=== PATIENT | female | born 1980 | race African-American/Black ===

== ENCOUNTER 2017-04-16 13:00 | Emergency (ER) | payer MEDICAID, OTHER ==
[~2017-04-16] VITALS: Ht 170.2 cm; Wt 103.0 kg
[2017-04-16] MEDS ORDERED: IPRATROPIUM BROMIDE (0.02%) 0.5MG/2.5ML NEB HHN ONE (17:00)
[2017-04-16] MEDS ORDERED: ALBUTEROL (0.083%) 2.5MG/3ML NEB HHN ONE (17:00)
[2017-04-16] MEDS ORDERED: PREDNISONE 20MG TABLET PO ONE (17:00)
[2017-04-16] MEDS ORDERED: METHYLPREDNISOLONE SOD SUCC 125 MG/2 ML VIAL IM ONE (17:30)
[2017-04-16] MEDS ORDERED: IPRATROPIUM BROMIDE (0.02%) 0.5MG/2.5ML NEB HHN STA (18:29)
[2017-04-16] MEDS ORDERED: ALBUTEROL (0.083%) 2.5MG/3ML NEB HHN STA (18:29)
[2017-04-16 21:37] VITALS: BP 132/56
== END 2017-04-16 21:41 | disposition home or self-care (01) ==
LOC: ER 16:00
DX: J45.909 Unspecified asthma, uncomplicated (principal)
CPT/HCPCS: 94640; 94644; 96372; 99285; J2930; J7611; Z7610

== ENCOUNTER 2017-04-18 15:00 | Inpatient (IN) | payer MEDICAID, OTHER ==
[~2017-04-18] VITALS: Ht 170.2 cm; Wt 102.1 kg
[2017-04-18] MEDS ORDERED: ALBU18HF2 IH (15:19)
[2017-04-18] MEDS ORDERED: DUONEB3 ML INH (15:19)
[2017-04-18] MEDS ORDERED: METHYLPREDNISOLONE SOD SUCC 125 MG/2 ML VIAL IV STA (15:34)
[2017-04-18] MEDS ORDERED: IPRATROPIUM/ALBUTEROL 0.5-3(2.5)MG/3ML NEB HHN ONE ×3 (15:45→19:15)
[2017-04-18] MEDS ORDERED: MAGNESIUM 2 G PREMIX 50 ML IV ONE (17:45)
[2017-04-18 18:53] LABS: CLARITY URINE CLOUDY (CLEAR); COLOR URINE YELLOW (YELLOW); GLUCOSE URINE NEGATIVE (NEGATIVE); KETONES URINE TRACE (NEGATIVE); LEUKOCYTE ESTERASE URINE NEGATIVE (NEGATIVE); NITRITE URINE NEGATIVE (NEGATIVE); OCCULT BLOOD URINE NEGATIVE (NEGATIVE); PROTEIN URINE NEGATIVE (NEGATIVE); SPECIFIC GRAVITY URINE 1.035 (1.005-1.030); UROBILINOGEN URINE 0.2 E.U./dL (0.2-1.0)
[2017-04-18 19:31] LABS: HEMATOCRIT. 38.5 % (36.0-48.0); HEMOGLOBIN. 12.5 g/dL (12.0-16.0); MEAN CORPUSCULAR VOLUME 83.6 fL (81.0-99.0); MEAN PLATELET VOLUME 7.9 fl (7.4-10.4); PLATELET 325 x1000/uL (130-400); RED BLOOD CELL COUNT 4.61 mill/uL (4.2-5.4); RED CELL DISTRIBUTION WIDTH 15.8 % (11.6-14.6)
[2017-04-18 19:32] LABS: PROTHROMBIN TIME 10.8 sec (9.4-11.6)
[2017-04-18 19:40] LABS: CARBON DIOXIDE 27 mEq/L (21-32); CHLORIDE 106 mEq/L (98-107)
[2017-04-18] MEDS ORDERED: CLONIDINE 0.1MG TABLET PO PRN (20:15)
[2017-04-18] MEDS ORDERED: MAGNESIUM/ALUMINUM HYDROXIDE/SIMETHICONE 30ML UDC PO PRN (20:15)
[2017-04-18] MEDS ORDERED: ONDANSETRON HCL 4MG/2ML VIAL IV PRN (20:15)
[2017-04-18] MEDS ORDERED: HYDROCODONE/ACETAMINOPHEN 5/325MG TABLET PO PRN (20:15)
[2017-04-18] MEDS ORDERED: DIPHENHYDRAMINE 50MG/ML VIAL IV PRN (20:15)
[2017-04-18] MEDS ORDERED: IPRATROPIUM/ALBUTEROL 0.5-3(2.5)MG/3ML NEB INH PRN (20:15)
[2017-04-18] MEDS ORDERED: ACETAMINOPHEN 325MG TABLET PO PRN (20:15)
[2017-04-18 20:39] LABS: PLATELET ESTIMATE NORMAL
[2017-04-18] MEDS ORDERED: SODIUM CHLORIDE 0.9% 1000ML BAG (SEPSIS BOLUS) IV ONE (21:15)
[2017-04-18] MEDS ORDERED: LEVOFLOXACIN 500MG PREMIX 100 ML IV SCH (22:15)
[2017-04-19] MEDS: IPRATROPIUM/ALBUTEROL 0.5-3(2.5)MG/3ML NEB INH SCH ×6 (01:07→20:45)
[2017-04-19 01:34] VITALS: BP 117/86
[2017-04-19] MEDS: METHYLPREDNISOLONE SOD SUCC 40 MG/ML VIAL IV SCH ×3 (02:39→19:26)
[2017-04-19] MEDS ORDERED: BUDE6HFA INH (02:59)
[2017-04-19 04:00] VITALS: BP 108/73
[2017-04-19 07:13] LABS: CARBON DIOXIDE 24 mEq/L (21-32); CHLORIDE 108 mEq/L (98-107); HDL CHOLESTEROL 58 mg/dL (40-59); LDL CHOLESTEROL 74 mg/dL (5-100); TROPONIN I < 0.02 ng/mL (0.00-0.04)
[2017-04-19 07:32] LABS: HEMATOCRIT. 35.6 % (36.0-48.0); HEMOGLOBIN. 11.7 g/dL (12.0-16.0); MEAN CORPUSCULAR HEMOGLOBIN 27.4 pg (28.0-32.0); MEAN CORPUSCULAR VOLUME 83.8 fL (81.0-99.0); MEAN PLATELET VOLUME 8.4 fl (7.4-10.4); PLATELET 303 x1000/uL (130-400); RED BLOOD CELL COUNT 4.26 mill/uL (4.2-5.4); RED CELL DISTRIBUTION WIDTH 15.6 % (11.6-14.6)
[2017-04-19 08:00] VITALS: BP 116/73
[2017-04-19 09:57] LABS: *AMPHETAMINES SCREEN URINE NEGATIVE (NEGATIVE); *BARBITURATES SCREEN URINE NEGATIVE (NEGATIVE); *BENZODIAZEPINES SCREEN URINE NEGATIVE (NEGATIVE); *COCAINE SCREEN URINE NEGATIVE (NEGATIVE); METHADONE URINE SCREEN NEGATIVE (NEGATIVE); OPIATES URINE SCREEN NEGATIVE (NEGATIVE); PHENCYCLIDINE URINE SCREEN NEGATIVE (NEGATIVE)
[2017-04-19 10:03] LABS: CANNABINOID URINE SCREEN PRESUMTIVE POSITIVE (NEGATIVE)
[2017-04-19 12:00] VITALS: BP 127/82
[2017-04-19] MEDS: BUDESONIDE 0.5MG/2ML NEB HHN SCH ×2 (12:11→20:45)
[2017-04-19 14:02] LABS: PLATELET ESTIMATE NORMAL
[2017-04-19 20:00] VITALS: BP 114/87
[2017-04-19] MEDS: LEVOFLOXACIN 500MG PREMIX 100 ML IV SCH (21:27)
[2017-04-19] MEDS ORDERED: LEVOFLOXACIN 500MG PREMIX 100 ML IV SCH (23:00)
[2017-04-20] VITALS: BP 118/81
[2017-04-20] MEDS: IPRATROPIUM/ALBUTEROL 0.5-3(2.5)MG/3ML NEB INH SCH ×6 (01:08→20:05)
[2017-04-20] MEDS: METHYLPREDNISOLONE SOD SUCC 40 MG/ML VIAL IV SCH ×3 (01:44→17:52)
[2017-04-20 04:00] VITALS: BP 122/74
[2017-04-20 06:33] LABS: HEMATOCRIT. 39.8 % (36.0-48.0); HEMOGLOBIN. 12.9 g/dL (12.0-16.0); MEAN CORPUSCULAR HEMOGLOBIN 27.1 pg (28.0-32.0); MEAN CORPUSCULAR VOLUME 83.9 fL (81.0-99.0); MEAN PLATELET VOLUME 8.2 fl (7.4-10.4); PLATELET 318 x1000/uL (130-400); RED BLOOD CELL COUNT 4.75 mill/uL (4.2-5.4); RED CELL DISTRIBUTION WIDTH 15.3 % (11.6-14.6)
[2017-04-20 06:38] LABS: CARBON DIOXIDE 26 mEq/L (21-32); CHLORIDE 104 mEq/L (98-107)
[2017-04-20] MEDS: BUDESONIDE 0.5MG/2ML NEB HHN SCH ×2 (07:41→20:05)
[2017-04-20 07:59] VITALS: BP 111/72
[2017-04-20 12:00] VITALS: BP 131/88
[2017-04-20 12:45] LABS: PLATELET ESTIMATE NORMAL
[2017-04-20 16:00] VITALS: BP 113/39
[2017-04-20 20:00] VITALS: BP 128/92
[2017-04-20] MEDS: LEVOFLOXACIN 500MG PREMIX 100 ML IV SCH (21:47)
[2017-04-21] VITALS: BP 110/74
[2017-04-21] MEDS: IPRATROPIUM/ALBUTEROL 0.5-3(2.5)MG/3ML NEB INH SCH ×4 (00:09→12:26)
[2017-04-21] MEDS: METHYLPREDNISOLONE SOD SUCC 40 MG/ML VIAL IV SCH (01:33)
[2017-04-21 04:00] VITALS: BP 128/81
[2017-04-21 07:44] VITALS: BP 117/91
[2017-04-21] MEDS: BUDESONIDE 0.5MG/2ML NEB HHN SCH (08:11)
[2017-04-21 12:01] VITALS: BP 119/87
[2017-04-21 13:07] VITALS: BP 117/91
[2017-04-21] MEDS ORDERED: PREDNISONE 20MG TABLET PO SCH (17:00)
== END 2017-04-21 14:40 | disposition home or self-care (01) | DRG 133 ==
LOC: ER 15:00 → 6WST 19:09 → EDBEDREQ 19:11 → EDBEDREQSVC 20:15 → ENRESERV 21:51
PROVIDERS: ADMIT Internal Medicine; ATTEND Internal Medicine
DX: J96.00 Acute respiratory failure, unspecified whether with hypoxia or hypercapnia (principal); E87.2 Acidosis; R65.10 Systemic inflammatory response syndrome (SIRS) of non-infectious origin without acute organ dysfunction; J45.901 Unspecified asthma with (acute) exacerbation; D72.829 Elevated white blood cell count, unspecified; F12.90 Cannabis use, unspecified, uncomplicated; T38.0X5A Adverse effect of glucocorticoids and synthetic analogues, initial encounter; Z79.899 Other long term (current) drug therapy; Z79.51 Long term (current) use of inhaled steroids; Z88.0 Allergy status to penicillin; Y92.89 Other specified places as the place of occurrence of the external cause
CPT/HCPCS: 36415; 71010; 80048; 80053; 80061; 80305; 81001; 81025; 83605; 84484; 85025; 85610; 87040; 87086; 93005; 94640; 94664; 96365; 96375; 99285; J1200; J1956; J2920; J2930; J3475; J7030; J7050; J7620; J7626

== ENCOUNTER 2017-12-17 18:40 | Emergency (ER) | payer MEDICAID, OTHER ==
[~2017-12-17] VITALS: Ht 170.2 cm; Wt 98.0 kg
[~2017-12-17 18:40] MED LIST: ALBU18HF2 IH; BUDE6HFA INH; DUONEB3 ML INH
[2017-12-17] MEDS ORDERED: METHYLPREDNISOLONE SOD SUCC 125 MG/2 ML VIAL IV ONE (20:15)
[2017-12-17] MEDS ORDERED: DIPHENHYDRAMINE 50MG/ML VIAL IV ONE (20:15)
[2017-12-17] MEDS ORDERED: FAMOTIDINE 20MG/2ML VIAL IV ONE (20:15)
[2017-12-17 23:46] VITALS: BP 117/76
== END 2017-12-18 00:14 | disposition home or self-care (01) ==
LOC: ER 18:54
DX: T78.1XXA Other adverse food reactions, not elsewhere classified, initial encounter (principal); R20.2 Paresthesia of skin; X58.XXXA Exposure to other specified factors, initial encounter; Z91.010 Allergy to peanuts
CPT/HCPCS: 96374; 96375; 99284; J1200; J2930; J3490; Z7610

== ENCOUNTER 2018-08-16 15:58 | Emergency (ER) | payer MEDICAID, OTHER ==
[~2018-08-16] VITALS: Ht 170.2 cm; Wt 94.0 kg
[2018-08-16] MEDS ORDERED: ALBUTEROL (0.083%) 2.5MG/3ML NEB HHN STA ×2 (16:16→19:41)
[2018-08-16] MEDS ORDERED: METHYLPREDNISOLONE SOD SUCC 125 MG/2 ML VIAL IV STA (16:16)
[2018-08-16] MEDS ORDERED: IPRATROPIUM BROMIDE (0.02%) 0.5MG/2.5ML NEB HHN STA ×2 (16:16→19:41)
[2018-08-16] MEDS ORDERED: MAGNESIUM 2 G PREMIX 50 ML IV ONE (16:30)
[2018-08-16 17:02] LABS: BASOPHILS % 0.5 % (0.0-2.0); CHLORIDE 109 mEq/L (98-107); EOSINOPHILS % 0.5 % (0.0-5.0); HEMATOCRIT. 40.5 % (36.0-48.0); HEMOGLOBIN. 12.9 g/dL (12.0-16.0); LYMPHOCYTES % 18.6 % (20.0-50.0); MEAN CORPUSCULAR HEMOGLOBIN 27.1 pg (28.0-32.0); MEAN CORPUSCULAR VOLUME 85.1 fL (81.0-99.0); MEAN PLATELET VOLUME 7.6 fl (7.4-10.4); MONOCYTES % 9.1 % (2.0-8.0); NEUTROPHILS % 71.3 % (40.0-76.0); PLATELET 341 x1000/uL (130-400); RED BLOOD CELL COUNT 4.76 mill/uL (4.2-5.4); RED CELL DISTRIBUTION WIDTH 14.8 % (11.6-14.6)
[2018-08-16 22:25] VITALS: BP 105/69
== END 2018-08-16 22:25 | disposition home or self-care (01) ==
LOC: ER 17:52
DX: J45.901 Unspecified asthma with (acute) exacerbation (principal); Z88.0 Allergy status to penicillin; Z98.890 Other specified postprocedural states
CPT/HCPCS: 36415; 71045; 80053; 81025; 85025; 94640; 96365; 99284; J2930; J3475; J7611; Z7610